=== PATIENT | female | born 1995 | race Caucasian/White ===

== ENCOUNTER 2022-07-24 18:07 | Emergency (ER) | payer OTHER ==
[~2022-07-24] VITALS: Ht 180.3 cm; Wt 156.3 kg
[2022-07-24 18:07] VITALS: BP 110/92
[2022-07-24] MEDS ORDERED: VENL75CA47 (18:16)
[2022-07-24] MEDS ORDERED: CLON0.5T2 (18:16)
[2022-07-24] MEDS ORDERED: LAMO100T3 (18:16)
[2022-07-24] MEDS ORDERED: PROP10TA56 (18:16)
[2022-07-24] MEDS ORDERED: DEXTROAMP-AMPHETAMIN (18:16)
[2022-07-24] MEDS ORDERED: LIDOCAINE 1% MDV 20ML VIAL SC ONE (18:40)
[2022-07-24] MEDS ORDERED: BACITRACIN OINTMENT 30GM TUBE TOP ONE (18:55)
[2022-07-24] MEDS ORDERED: BOOSTRIX/ADACEL VACCINE (DIPHTH/PERTUSS/ACELL/TETANUS) 0.5ML SYR IM ONE (18:55)
== END 2022-07-24 19:32 | disposition home or self-care (01) ==
LOC: M ED 18:07
DX: S60.455A Superficial foreign body of left ring finger, initial encounter (principal); W45.8XXA Other foreign body or object entering through skin, initial encounter; Z23 Encounter for immunization